=== PATIENT | male | born 1980 | race Hispanic/Latino ===

== ENCOUNTER 2017-10-18 16:12 | Emergency (ER) | payer SELFPAY ==
[2017-10-18 16:34] VITALS: BMI 45.9
[2017-10-18 16:42] VITALS: BP 127/89; PULSE 69; RESP 16; TEMP 98.8; O2SAT 97
[2017-10-18] MEDS ORDERED: Sodium Chloride 0.9% 1,000 ML IV STA (17:16)
[2017-10-18] MEDS ORDERED: Morphine 2 mg/ml ISec IVP STA ×3 (17:28→20:44)
[2017-10-18] MEDS ORDERED: Morphine 4 mg/ml ISec IVP STA (18:04)
[2017-10-18 18:08] LABS: BASO # 0.04 K/mm3 (0.0-2.0); BASO % 0.7 % (0.0-3.0); EOS # 0.1 (0.0-0.7); EOS % 1.8 % (1.5-5.0); GRAN # 4.24 (1.4-6.5); GRAN % 75.8 % (50.0-68.0); HEMOGLOBIN 12.1 g/dL (14.0-18.0); LYMPH # 0.8 (1.2-3.4); MEAN CELL VOLUME 84.8 fl (80.0-105.0); MEAN CORPUSCULAR HEMOGLOBIN 28.7 pg (25.0-35.0); MEAN CORPUSCULAR HGB CONC 33.9 g/dl (31.0-37.0); MONO # 0.4 (0.1-0.6); MONO % 7.7 % (1.0-6.0); RBC 4.21 10^6/uL (3.5-6.1); RED CELL DISTRIBUTION WIDTH 13.8 % (11.5-14.5); WHITE BLOOD COUNT 5.6 10^3/ul (4.5-11.0)
[2017-10-18 18:09] LABS: PH,URINE 6.5 (4.7-8.0); URINE BILIRUBIN NEGATIVE (NEGATIVE); URINE BLOOD SMALL (NEGATIVE); URINE GLUCOSE (UA) NEGATIVE (NEGATIVE); URINE LEUKOCYTE ESTERASE SMALL Leu/uL (NEGATIVE); URINE PROTEIN NEGATIVE mg/dL (<30 mg/dL); URINE UROBILINOGEN 0.2 E.U./dL (<1 E.U./dL)
[2017-10-18 18:13] LABS: URINE COLOR YELLOW (YELLOW)
[2017-10-18 18:15] LABS: ALB/GLOB RATIO 1.4 (1.1-1.8); ALBUMIN 4.7 g/dL (3.0-4.8); ALT/SGPT 32 U/L (7-56); AST/SGOT 34 U/L (17-59); BLOOD UREA NITROGEN 12 mg/dL (7-21); CALCIUM 9.7 mg/dL (8.4-10.5); GFR AFRICAN-AMERICAN > 60; GFR NON-AFRICAN AMERICAN > 60; INR 0.97 (0.93-1.08); PARTIAL THROMBOPLASTIN TIME 21.3 Seconds (25.1-36.5)
--- NOTE | 2017-10-18 18:16 | ED PDOC ---
Arrival/HPI - General Chief Complaint: Male Genitourinary Time Seen by Provider: 10/18/17 16:37 Historian: Patient EM Caveat: Acuity of Condition - History of Present Illness Narrative History of Present Illness (Text): 10/18/17 18:06 Pt is a 36 yr old male with PMH of renal and uretal stones presents to the ED for sharp Left flank pain s/p lithotripsy 3 days ago and frequent vomiting. Pt reports passing 6 stones since 2003 and the most recent one was found while on vacation in [place] last week. He was treated for a 10mm calculi of the left proximal ureter and admitted for procedure and to be weaned off of coumadin for a DVT. Post op note and radiology report was given to the patient to bring back to his urologist, Dr. Edward Schaeffer in [place], whom he is scheduled to see Thursday. Pt now is on Lovenox as well as Flomax, Oxybutynin, pyridium and percocet. Denies fever, hematuria, diarrhea, back pain, chest pain shortness of breath or any other complaints. Time/Duration: 24 hours Symptom Onset: Sudden Symptom Course: Intermittent, [place] Quality: Aching, Pressure Severity Level: 6 Activities at Onset: Rest Context: Home Past Medical History - Provider Review Nursing Documentation Reviewed: Yes - Travel History Have you recently traveled outside [place] w/in the past 3 mons?: No - Cardiac Hx Cardiac Disorders: Yes - Pulmonary Hx Respiratory Disorders: No - Neurological Hx Neurological Disorder: No - HEENT Hx HEENT Disorder: No - Renal Hx Kidney Stones: Yes - Endocrine/Metabolic Hx Endocrine Disorders: No - Hematological/Oncological Hx Blood Disorders: No - Psychiatric Hx Substance Use: No - Anesthesia Hx Anesthesia: Yes Hx Anesthesia Reactions: No Hx Malignant Hyperthermia: No Family/Social History - Physician Review Nursing Documentation Reviewed: Yes Family/Social History: Unknown Family HX Smoking Status: Never Smoked Hx Alcohol Use: No Hx Substance Use: No Allergies/Home Meds Allergies/Adverse Reactions: Allergies NSAIDS (Non-Steroidal Anti-Inflamma Allergy (Verified 10/18/17 16:35) URTICARIA Home Medications: Home Meds Medication Instructions Recorded Confirmed Acetaminophen [Tylenol] 650 mg PO Q6H PRN 10/18/17 10/18/17 Enoxaparin [Lovenox] 120 mg SQ BID 10/18/17 10/18/17 Oxybutynin [Ditropan Tab] 5 mg PO BID 10/18/17 10/18/17 Phenazopyridine [Pyridium] 100 mg PO DAILY 10/18/17 10/18/17 Sulfamethoxazole/Trimethoprim 1 tab PO BID 10/18/17 10/18/17 [Bactrim DS Tab] Tamsulosin [Flomax] 0.4 mg PO DAILY 10/18/17 10/18/17 oxyCODONE/Acetaminophen [Percocet 1 tab PO Q4H PRN 10/18/17 10/18/17 5/325 mg Tab] Review of Systems - Review of Systems Constitutional: Normal Eyes: Normal ENT: Normal Respiratory: Normal Cardiovascular: Normal Gastrointestinal: Normal, Abdominal Pain, Nausea, Vomiting, Appetite Changes. absent: Stool Changes, Constipation, Diarrhea, Hematochezia, Hematemesis Genitourinary Male: Normal. absent: Dysuria, Frequency, Hematuria, Urinary Output Changes Musculoskeletal: Normal. absent: Back Pain Skin: Normal Neurological: Normal Endocrine: Normal Hemo/Lymphatic: Normal Psychiatric: Normal Physical Exam Vital Signs Reviewed: Yes Vital Signs Temp Pulse Resp BP Pulse Ox 10/18/17 16:41 98.8 F 69 16 127/89 97 Temperature: Afebrile Blood Pressure: Normal Pulse: Regular Respiratory Rate: Normal Appearance: Positive for: Well-Appearing, Non-Toxic, Comfortable Pain Distress: Moderate Mental Status: Positive for: Alert and Oriented X 3 - Systems Exam Head: Present: Atraumatic, Normocephalic Mouth: Present: Moist Mucous Membranes Neck: Present: Normal Range of Motion Respiratory/Chest: Present: Clear to Auscultation, Good Air Exchange. No: Respiratory Distress, Accessory Muscle Use, Wheezes, Decreased Breath Sounds Cardiovascular: Present: Regular Rate and Rhythm, Normal S1, S2. No: Murmurs Abdomen: Present: Normal Bowel Sounds. No: Tenderness, Distention, Peritoneal Signs Back: Present: Normal Inspection, CVA Tenderness Upper Extremity: Present: Normal Inspection. No: Cyanosis, Edema Lower Extremity: Present: Normal Inspection. No: Edema, CALF TENDERNESS Neurological: Present: GCS=15, CN II-XII Intact, Speech Normal Skin: Present: Warm, Dry, Normal Color. No: Rashes Psychiatric: Present: Alert, Oriented x 3, Normal Insight, Normal Concentration Medical Decision Making ED Course and Treatment: 10/18/17 18:16 Impression Pt is a 36 yr old male with PMH of renal and uretal stones presents to the ED for sharp Left flank pain s/p lithotripsy 3 days ago and frequent vomiting. As per pt, girlfriend will be arriving with report from the lithotripsy procedure Plan Fluids, pain management labs, UA imaging anti-emesis assess and dispo Progress note Pt given 2 doses of morphine and zofran but continues to ask for pain control CT abdomen sent to [facility] and pending read UA positive for whites (10+) and leukocyte esterase-->pt currently taking Bactrim q12 x [address] Vaughn, who advised that pt is a well known drug-seeker at [facility] who often changes his name to receive drugs 10/18/17 20:52 IMPRESSION: Mild left perinephric and periureteral fat stranding. Possible mild left obstructive uropathy - obstructive nephropathy related to passed renal stone and/or renal-urinary tract infection. (No definite stone seen within the kidneys, ureters or bladder. ) Advised pt to continue taking Bactrim DS for UTI (pt has taken 3 tabs only out of 20) Discussed CT findings with pt who wants percocet for pain; advised, according to hospital policy, photo ID is required to receive narcotic Rx Pt could not produce ID and proceeded to elope - Lab Interpretations Lab Results: 10/18/17 17:47 10/18/17 17:47 Lab Results 10/18/17 17:47: PT 11.0, INR 0.97, APTT 21.3 L 10/18/17 17:47: Sodium 143, Potassium 4.1, Chloride 103, Carbon Dioxide 28, Anion Gap 16, BUN 12, Creatinine 0.7 L, Est GFR ( Amer) > 60, Est GFR ( Non-Af Amer) > 60, Random Glucose 103, Calcium 9.7, Total Bilirubin 0.5, AST 34 , ALT 32, Alkaline Phosphatase 71, Total Protein 8.1, Albumin 4.7, Globulin 3.4 , Albumin/Globulin Ratio 1.4 10/18/17 17:47: Urine Color Yellow, Urine Appearance Sl cloudy, Urine pH 6.5, Ur Specific [place] 1.020, Urine Protein Negative, Urine Glucose (UA) Negative, Urine Ketones Negative, Urine Blood Small H, Urine Nitrate Negative, Urine Bilirubin Negative, Urine Urobilinogen 0.2, Ur Leukocyte Esterase Small H, Urine RBC Negative, Urine WBC 10 - 15, Ur Epithelial Cells 10 - 12, Urine Bacteria Mod 10/18/17 17:47: WBC 5.6, RBC 4.21, Hgb 12.1 L, Hct 35.7 L, MCV 84.8, MCH 28.7, MCHC 33.9, RDW 13.8, Plt Count 312, MPV 9.0, Gran % 75.8 H, Lymph % (Auto) 14.0 L, [place] % (Auto) 7.7 H, Eos % (Auto) 1.8, Baso % (Auto) 0.7, Gran # 4.24, Lymph # (Auto) 0.8 L, [place] # (Auto) 0.4, Eos # (Auto) 0.1, Baso # (Auto) 0.04 - RAD Interpretation Narrative RAD Interpretations (Text): 10/18/17 20:37 EXAM: CT Abdomen and Pelvis Without Intravenous Contrast EXAM DATE/TIME: 10/18/2017 5:28 PM CLINICAL HISTORY: 36 years old, male; Pain; Abdominal pain; Patient HX: Left flank pain TECHNIQUE: Axial computed tomography images of the abdomen and pelvis without intravenous contrast. All CT scans at this facility use at least one of these dose optimization techniques: automated exposure control; mA and/or kV adjustment per patient size (includes targeted exams where dose is matched to clinical indication); or iterative reconstruction. COMPARISON: No relevant prior studies available. FINDINGS: Lower thorax: No acute findings. ABDOMEN: Liver: Normal. No mass. Gallbladder and bile ducts: Normal. No calcified stones. No ductal dilation. Pancreas: Normal. No ductal dilation. Spleen: Normal. No splenomegaly. Adrenals: Normal. No mass. Kidneys and ureters: Mild left perinephric and periureteral fat stranding. Stomach and bowel: Normal. No obstruction. No mucosal thickening. Appendix: Visualized portions of appendix appear normal. PELVIS: Bladder: Unremarkable as visualized. Reproductive: Prostate appears within normal limits. ABDOMEN and PELVIS: Intraperitoneal space: Normal. No free air. No significant fluid collection. Bones/joints: Chronic degenerative changes of the lumbar spine. Soft tissues: Unremarkable. Vasculature: Numerous pelvic phleboliths. Lymph nodes: Normal. No enlarged lymph nodes. IMPRESSION: Mild left perinephric and periureteral fat stranding. Possible mild left obstructive uropathy - obstructive nephropathy related to passed renal stone and/or renal-urinary tract infection. (No definite stone seen within the kidneys, ureters or bladder. ) Radiology Orders: 10/18/17 17:28 ABD & PELVIS W/O PO OR IV CONT [CT] Stat - Medication Orders Current Medication Orders: Discontinued Medications Sodium Chloride (Sodium Chloride 0.9%) 1,000 mls @ 999 mls/hr IV .Q1H1M STA Stop: 10/18/17 18:16 Last Admin: 10/18/17 17:47 Dose: 999 mls/hr eMAR Start Stop Document 10/18/17 17:47 GMD (Rec: 10/18/17 17:48 GMD [id number]) Intravenous Solution Start Date 10/18/17 Start Time 17:48 End Date 10/18/17 End time 18:49 Total Infusion Time 61 Morphine Sulfate (Morphine) 2 mg IVP STAT STA Stop: 10/18/17 17:29 Last Admin: 10/18/17 17:48 Dose: 2 mg MAR Pain Assessment Document 10/18/17 17:48 GMD (Rec: 10/18/17 17:49 GMD [id number]) Pain Reassessment Is this a pain reassessment? No Presence of Pain Presence of Pain Yes IVP Administration Document 10/18/17 17:48 GMD (Rec: 10/18/17 17:49 GMD [id number]) Charges for Administration # of IVP Administrations 1 Morphine Sulfate (Morphine) 4 mg IVP STAT STA Stop: 10/18/17 18:30 Last Admin: 10/18/17 18:34 Dose: 4 mg MAR Pain Assessment Document 10/18/17 18:34 GMD (Rec: 10/18/17 18:34 GMD [id number]) Pain Reassessment Is this a pain reassessment? Yes Presence of Pain Presence of Pain Yes IVP Administration Document 10/18/17 18:34 GMD (Rec: 10/18/17 18:34 GMD [id number]) Charges for Administration # of IVP Administrations 1 Ondansetron HCl (Zofran Inj) 4 mg IVP STAT STA Stop: 10/18/17 17:17 Last Admin: 10/18/17 17:48 Dose: 4 mg IVP Administration Document 10/18/17 17:48 GMD (Rec: 10/18/17 17:48 GMD [id number]) Charges for Administration # of IVP Administrations 1 Disposition/Present on Arrival - Present on Arrival Any Indicators Present on Arrival: Yes History of DVT/PE: Yes History of Uncontrolled Diabetes: No Urinary Catheter: No History of Decub. Ulcer: No History Surgical Site Infection Following: None - Disposition Have Diagnosis and Disposition been Completed?: Yes Diagnosis: Renal colic on left side, UTI (urinary tract infection) Disposition: ELOPEMENT - ER ONLY Disposition Time: 20:45 Patient Plan: Other (elopement ) Patient Problems: Current Active Problems Problem Status Onset Renal colic on left side Acute Condition: STABLE Discharge Instructions (ExitCare): Urinary Tract Infections in Adults, Renal Colic (DC) Additional Instructions: TABBY COTTRELL, thank you for letting us take care of you today. Your provider was Nithin Vaughn MD and you were treated for RENAL COLIC. The emergency medical care you received today was directed at your acute symptoms. If you were prescribed any medication, please fill it and take as directed. It may take several days for your symptoms to resolve. Return to the Emergency Department if your symptoms worsen, do not improve, or if you have any other problems. Follow up with Dr Travis Miller on Thursday Please contact your doctor or call one of the physicians/clinics you have been referred to that are listed on the Patient Visit Information form that is included in your discharge packet. Bring any paperwork you were given at discharge with you along with any medications you are taking to your follow up visit. Our treatment cannot replace ongoing medical care by a primary care provider outside of the emergency department. Thank you for allowing the [facility] team to be part of your care today. If you had an X-Ray or CT scan: A Radiologist will review the ED reading if any change in treatment is needed we will contact you. If you had a blood, urine, or wound culture: It will take several days for the results, if any change in treatment is needed we will contact you. Referrals: Edward Miller MD [Staff Provider] - Follow up with primary Forms: [employer] ([place] Citizen)
[2017-10-18 18:18] LABS: URINE APPEARANCE SL CLOUDY (CLEAR)
[2017-10-18 18:19] LABS: URINE BACTERIA MOD (NEG); URINE RBC NEGATIVE /hpf (0-2)
--- NOTE | 2017-10-18 22:18 | ED PDOC ---
Physical Exam Vital Signs Temp Pulse Resp BP Pulse Ox 10/18/17 16:41 98.8 F 69 16 127/89 97 Medical Decision Making ED Course and Treatment: 10/18/17 19:00 Case endorsed to me by Dr. Belle, CT Abdomen and Pelvis, re-evaluation, and disposition. 10/18/17 20:35 CT Abdomen and Pelvis shows: Lower thorax: No acute findings. ABDOMEN: Liver: Normal. No mass. Gallbladder and bile ducts: Normal. No calcified stones. No ductal dilation. Pancreas: Normal. No ductal dilation. Spleen: Normal. No splenomegaly. Adrenals: Normal. No mass. Kidneys and ureters: Mild left perinephric and periureteral fat stranding. Stomach and bowel: Normal. No obstruction. No mucosal thickening. Appendix: Visualized portions of appendix appear normal. PELVIS: Bladder: Unremarkable as visualized. Reproductive: Prostate appears within normal limits. ABDOMEN and PELVIS: Intraperitoneal space: Normal. No free air. No significant fluid collection. Bones/joints: Chronic degenerative changes of the lumbar spine. Soft tissues: Unremarkable. Vasculature: Numerous pelvic phleboliths. Lymph nodes: Normal. No enlarged lymph nodes. IMPRESSION: Mild left perinephric and periureteral fat stranding. Possible mild left obstructive uropathy - obstructive nephropathy related to passed renal stone and/or renal-urinary tract infection. (No definite stone seen within the kidneys, ureters or bladder. ) 10/18/17 20:57 Pt eloped from ER. - Lab Interpretations Lab Results: 10/18/17 17:47 10/18/17 17:47 Lab Results 10/18/17 17:47: PT 11.0, INR 0.97, APTT 21.3 L 10/18/17 17:47: Sodium 143, Potassium 4.1, Chloride 103, Carbon Dioxide 28, Anion Gap 16, BUN 12, Creatinine 0.7 L, Est GFR ( Amer) > 60, Est GFR ( Non-Af Amer) > 60, Random Glucose 103, Calcium 9.7, Total Bilirubin 0.5, AST 34 , ALT 32, Alkaline Phosphatase 71, Total Protein 8.1, Albumin 4.7, Globulin 3.4 , Albumin/Globulin Ratio 1.4 10/18/17 17:47: Urine Color Yellow, Urine Appearance Sl cloudy, Urine pH 6.5, Ur Specific [place] 1.020, Urine Protein Negative, Urine Glucose (UA) Negative, Urine Ketones Negative, Urine Blood Small H, Urine Nitrate Negative, Urine Bilirubin Negative, Urine Urobilinogen 0.2, Ur Leukocyte Esterase Small H, Urine RBC Negative, Urine WBC 10 - 15, Ur Epithelial Cells 10 - 12, Urine Bacteria Mod 10/18/17 17:47: WBC 5.6, RBC 4.21, Hgb 12.1 L, Hct 35.7 L, MCV 84.8, MCH 28.7, MCHC 33.9, RDW 13.8, Plt Count 312, MPV 9.0, Gran % 75.8 H, Lymph % (Auto) 14.0 L, [place] % (Auto) 7.7 H, Eos % (Auto) 1.8, Baso % (Auto) 0.7, Gran # 4.24, Lymph # (Auto) 0.8 L, [place] # (Auto) 0.4, Eos # (Auto) 0.1, Baso # (Auto) 0.04 - RAD Interpretation Radiology Orders: 10/18/17 17:28 ABD & PELVIS W/O PO OR IV CONT [CT] Stat Drawbridge Operator: Radiologist - Medication Orders Current Medication Orders: Discontinued Medications Sodium Chloride (Sodium Chloride 0.9%) 1,000 mls @ 999 mls/hr IV .Q1H1M STA Stop: 10/18/17 18:16 Last Admin: 10/18/17 17:47 Dose: 999 mls/hr eMAR Start Stop Document 10/18/17 17:47 GMD (Rec: 10/18/17 17:48 GMD [id number]) Intravenous Solution Start Date 10/18/17 Start Time 17:48 End Date 10/18/17 End time 18:49 Total Infusion Time 61 Morphine Sulfate (Morphine) 2 mg IVP STAT STA Stop: 10/18/17 17:29 Last Admin: 10/18/17 17:48 Dose: 2 mg MAR Pain Assessment Document 10/18/17 17:48 GMD (Rec: 10/18/17 17:49 GMD [id number]) Pain Reassessment Is this a pain reassessment? No Presence of Pain Presence of Pain Yes IVP Administration Document 10/18/17 17:48 GMD (Rec: 10/18/17 17:49 GMD [id number]) Charges for Administration # of IVP Administrations 1 Morphine Sulfate (Morphine) 4 mg IVP STAT STA Stop: 10/18/17 18:30 Last Admin: 10/18/17 18:34 Dose: 4 mg MAR Pain Assessment Document 10/18/17 18:34 GMD (Rec: 10/18/17 18:34 GMD [id number]) Pain Reassessment Is this a pain reassessment? Yes Presence of Pain Presence of Pain Yes IVP Administration Document 10/18/17 18:34 GMD (Rec: 10/18/17 18:34 GMD [id number]) Charges for Administration # of IVP Administrations 1 Morphine Sulfate (Morphine) 2 mg IVP STAT STA Stop: 10/18/17 20:45 Ondansetron HCl (Zofran Inj) 4 mg IVP STAT STA Stop: 10/18/17 17:17 Last Admin: 10/18/17 17:48 Dose: 4 mg IVP Administration Document 10/18/17 17:48 GMD (Rec: 10/18/17 17:48 GMD [id number]) Charges for Administration # of IVP Administrations 1 Disposition/Present on Arrival - Present on Arrival Any Indicators Present on Arrival: Yes History of DVT/PE: Yes History of Uncontrolled Diabetes: No Urinary Catheter: No History of Decub. Ulcer: No History Surgical Site Infection Following: None - Disposition Have Diagnosis and Disposition been Completed?: Yes Diagnosis: Renal colic on left side, UTI (urinary tract infection) Disposition: ELOPEMENT - ER ONLY Disposition Time: 20:57 Condition: STABLE Discharge Instructions (ExitCare): Urinary Tract Infections in Adults, Renal Colic (DC) Additional Instructions: TABBY COTTRELL, thank you for letting us take care of you today. Your provider was Nithin Vaughn MD and you were treated for RENAL COLIC. The emergency medical care you received today was directed at your acute symptoms. If you were prescribed any medication, please fill it and take as directed. It may take several days for your symptoms to resolve. Return to the Emergency Department if your symptoms worsen, do not improve, or if you have any other problems. Follow up with Dr Travis Miller on Thursday Please contact your doctor or call one of the physicians/clinics you have been referred to that are listed on the Patient Visit Information form that is included in your discharge packet. Bring any paperwork you were given at discharge with you along with any medications you are taking to your follow up visit. Our treatment cannot replace ongoing medical care by a primary care provider outside of the emergency department. Thank you for allowing the [facility] team to be part of your care today. If you had an X-Ray or CT scan: A Radiologist will review the ED reading if any change in treatment is needed we will contact you. If you had a blood, urine, or wound culture: It will take several days for the results, if any change in treatment is needed we will contact you. Referrals: Edward Miller MD [Staff Provider] - Follow up with primary Forms: [employer] ([place])
--- NOTE | 2017-10-19 11:20 | CT ---
PROCEDURE: CT Abdomen and Pelvis without intravenous contrast HISTORY: left flank pain COMPARISON: None. TECHNIQUE: Technique. Contrast dose: Radiation dose: Total exam DLP = 1906 mGy-cm. This CT exam was performed using one or more of the following dose reduction techniques: Automated exposure control, adjustment of the mA and/or kV according to patient size, and/or use of iterative reconstruction technique. FINDINGS: LOWER THORAX: Unremarkable. LIVER: Unremarkable. No gross lesion or ductal dilatation. GALLBLADDER AND BILE DUCTS: Unremarkable. PANCREAS: Unremarkable. No gross lesion or ductal dilatation. SPLEEN: Unremarkable. ADRENALS: Unremarkable. No mass. KIDNEYS AND URETERS: Mild left perinephric and proximal left periureteral fat stranding possibly related to obstructive uropathy due to a recently passed calculus. VASCULATURE: Unremarkable. No aortic aneurysm. BOWEL: Unremarkable. No obstruction. No gross mural thickening. APPENDIX: Unremarkable. Normal appendix. PERITONEUM: Unremarkable. No free fluid. No free air. LYMPH NODES: Unremarkable. No enlarged lymph nodes. BLADDER: Unremarkable. REPRODUCTIVE: Unremarkable. BONES: No acute fracture. OTHER FINDINGS: None. IMPRESSION: Mild left perinephric and proximal left periureteral fat stranding possibly related to obstructive uropathy due to a recently passed calculus.
== END 2017-10-18 20:50 | disposition left against medical advice (07) ==
LOC: ED 16:12
DX: N39.0 Urinary tract infection, site not specified (principal); N23 Unspecified renal colic
CPT/HCPCS: 74176; 80053; 81001; 85025; 85610; 85730; 87086; 96361; 96374; 96375; 96376; 99284; J2270; J2405; J7030